=== PATIENT | male | born 1960 | race Caucasian/White ===

== ENCOUNTER 2022-08-05 14:33 | Emergency (ER) | payer MEDICARE, OTHER ==
[~2022-08-05] VITALS: Ht 170.2 cm; Wt 70.3 kg
--- NOTE | 2022-08-05 14:45 | NUR ---
REceved pt 62 YRS MALE TRANSFER FROM [facility] FOR EVALUATION OF CHEST PAIN NO SOB
[2022-08-05] MEDS ORDERED: IV NS 0.9% 1,000 ML BAG IV ONE (15:00)
--- NOTE | 2022-08-05 15:00 | NUR ---
SEEN BY DR. GIVNES
--- NOTE | 2022-08-05 15:20 | NUR ---
INSERTED ANGOCATHETER G 18 ON LT AC BLOOD DROW AND SENT TO LAB
[2022-08-05 15:43] LABS: BASOPHILS % (AUTO) 0.3 % (0.0-2.0); EOSINOPHILS % (AUTO) 2.8 % (0.0-6.0); HEMATOCRIT 47 % (39-51); HEMOGLOBIN 15.8 g/dL (13.5-17.5); LYMPHOCYTES # (AUTO) 2.7 K/uL (0.8-4.8); LYMPHOCYTES % (AUTO) 28.2 % (20.0-44.0); MEAN CORPUSCULAR HGB CONC 33 g/dl (31.0-36.0); MEAN CORPUSCULAR VOLUME 92 fL (80-96); MONOCYTES # (AUTO) 0.7 K/uL (0.1-1.30); MONOCYTES % (AUTO) 7.5 % (2.0-12.0); NEUTROPHILS # (AUTO) 5.8 K/uL (1.8-8.9); NEUTROPHILS % (AUTO) 61.2 % (43.0-81.0); PLATELET COUNT (AUTO) 270 K/uL (150-450); RED BLOOD CELL COUNT(AUTO) 5.13 MIL/uL (4.5-6.0); WHITE BLOOD COUNT (AUTO) 9.5 K/uL (4.3-11.0)
[2022-08-05 15:57] LABS: CALCIUM, SERUM 9.8 mg/dL (8.5-10.1); CARBON DIOXIDE 30 mmol/L (21-32); CHLORIDE 103 mmol/L (98-107); CREATININE 1.1 mg/dL (0.6-1.3); GLUCOSE 97 mg/dL (74-106); SODIUM SERUM 140 mmol/L (136-145); UREA NITROGEN, BLOOD 24 mg/dL (7-18)
[2022-08-05 16:02] LABS: ALANINE AMINOTRANSFERASE 45 U/L (12-78); ALBUMIN 3.9 g/dL (3.4-5.0); ALCOHOL, BLOOD < 3 mg/dL (0-0); ALKALINE PHOSPHATASE 116 U/L (46-116); ASPARTATE AMINOTRANSFERASE 25 U/L (15-37); BILIRUBIN,DIRECT 0.1 mg/dL (0.0-0.2); BILIRUBIN,TOTAL 0.3 mg/dL (0.2-1.0); TOTAL PROTEIN, SERUM 7.6 g/dL (6.4-8.2)
[2022-08-05 16:54] LABS: SERUM AMMONIA 29 umol/L (11-32)
--- NOTE | 2022-08-05 16:55 | NUR ---
COVID AND UA SENT TO LAB
[2022-08-05 17:18] LABS: THYROID STIMULATING HORMONE 1.874 uIU/mL (0.358-3.74)
--- NOTE | 2022-08-05 18:11 | NUR ---
PT confused tray to got out wal out pull out iv line and H/L
--- NOTE | 2022-08-05 18:43 | NUR ---
[facility] ETA 90 MINS TO [facility]. NUMBER FOR REPORT: [phone]
--- NOTE | 2022-08-05 19:40 | NUR ---
HAND OFF FATOU BAZAN
--- NOTE | 2022-08-05 20:30 | NUR ---
REPORT GIVEN TO EMS AT BEDSIDE
[2022-08-05 22:49] VITALS: BP 130/75
== END 2022-08-05 22:50 ==
LOC: ER 14:39
DX: R07.89 Other chest pain (principal); Z20.822 Contact with and (suspected) exposure to COVID-19; R91.8 Other nonspecific abnormal finding of lung field; I45.10 Unspecified right bundle-branch block; Z88.1 Allergy status to other antibiotic agents; Z88.2 Allergy status to sulfonamides; R41.82 Altered mental status, unspecified
CPT/HCPCS: 99284; 93005; 71045; 70450; 82140; 85025; 80048; 80076; 36415; 84443; 84484 ×2; 85730; 82962; 87426; 80320; 80307; J7030; C9803; G0480